=== PATIENT | female | born 1955 | race Caucasian/White ===

== ENCOUNTER 2020-05-04 11:31 | Emergency (ER) | payer SELFPAY ==
[~2020-05-04] VITALS: Ht 172.7 cm; Wt 77.1 kg
[2020-05-04] MEDS ORDERED: CALCIUM (11:45)
[2020-05-04] MEDS ORDERED: Co Q-1010 MG (11:45)
[2020-05-04] MEDS ORDERED: COLLAGEN (11:45)
[2020-05-04] MEDS ORDERED: VIT D (11:45)
[2020-05-04] MEDS ORDERED: MULVITA PO (11:45)
[2020-05-04] MEDS ORDERED: MELATONIN5 M1 PO (11:46)
[2020-05-04] MEDS ORDERED: CYCL10 PO (14:49)
[2020-05-04] MEDS ORDERED: IBUP800 PO (14:49)
== END 2020-05-04 15:18 | disposition home or self-care (01) ==
LOC: ER 11:31
DX: S32.019A Unspecified fracture of first lumbar vertebra, initial encounter for closed fracture (principal); Z88.6 Allergy status to analgesic agent; Z88.5 Allergy status to narcotic agent; Z79.899 Other long term (current) drug therapy; Z87.891 Personal history of nicotine dependence
CPT/HCPCS: 72100; 96374; 96375; 99283-25; J0515; J2060; J2405